=== PATIENT | male | born 1990 | race Caucasian/White ===

== ENCOUNTER 2018-05-25 13:53 | Outpatient (REF) | payer BC, SELFPAY ==
[2018-05-25 21:23] LABS: HCT 45.2 % (40.0-50.0); HGB 15.6 g/dL (13.5-17.5); Mean Corp. HGB Concentration 34.5 g/dL (32.0-36.0); Mean Corpuscular Hemoglobin 29.8 pg (27.0-33.0); Mean Corpuscular Volume 86.4 fL (80-95); Mean Platelet Volume 10.2 fL (8.0-11.0); Platelet Count 229 x1000/uL (130-400); RBC 5.23 m/cumm (4.50-6.00); White Blood Cell Count 7.03 k/cumm (4.4-10.8)
== END 2018-05-25 14:13 ==
LOC: NCHCN 13:53
PROVIDERS: PCP Internal Medicine; Visit Provider Internal Medicine
DX: L70.0 Acne vulgaris (principal); Z79.899 Other long term (current) drug therapy
CPT/HCPCS: 85027